=== PATIENT | male | born 1985 | race Caucasian/White ===

== ENCOUNTER 2019-09-09 05:25 | Day surgery (SDC) | payer BC ==
[~2019-09-09] VITALS: Ht 180.3 cm; Wt 79.8 kg
[2019-09-09 06:08] VITALS: Ht 180.3 cm; Wt 79.8 kg
--- NOTE | 2019-09-09 09:44 | OP ---
PATIENT NAME: MARYSOL CAMPOS MEDICAL RECORD: [id number] LOCATION:D.OPS ADMISSION DATE: SURGEON: LINDSAY RAY MD DATE OF OPERATION: 09/09/2019 SURGEON: Lindsay Ray MD ANESTHESIA: TIVA by Ugo Arreola MD DIAGNOSIS: Male sterilization. SPECIMENS: Right vas deferens, left vas deferens. ESTIMATED BLOOD LOSS: None. CLINICAL HISTORY: This is a 34-year-old male who has 5 children in his family. He does not want to have any more children. He comes to have a vasectomy done. He has no allergies to medication. 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 DESCRIPTION OF PROCEDURE: The patient was given IV sedation. He was placed in supine position and prepped and draped. A 0.25% Marcaine with epinephrine was used to infiltrate the skin overlying the vas deferens. A 1 cm long incision was made and the vas deferens was isolated out using the Pito clamp. Hemostats were applied at the proximal and distal ends and the intervening segment was cut out using a #15 blade. The vasal ends were then cauterized. A 4-0 Prolene ties were then used to tie the vasal ends. The 2 vasal ends were then placed back into the right hemiscrotum and the scrotal skin was closed using simple interrupted 4-0 Vicryl. The identical procedure was performed on the left side. At the end of the procedure, fluffs and mesh panties were given. I will see the patient in followup in 2 weeks' time. He is aware that he needs to keep using contraception until we have a post-vasectomy semen analysis, which shows azoospermia in about a month's time. TRANSINT:[id number] Voice Confirmation ID: [id number] DOCUMENT ID: [id number] LINDSAY RAY MD at 0944 CC: [id number] DICTATION DATE: 09/09/19820 SHIPS EQUIPMENT ENGINEER: 09/09/19911 [facility] [address] [id number]
--- NOTE | 2019-09-09 13:38 | NUR ---
0955 IV DC'ED WITH CATH INTACT & 650ML LTC. DRESSING. Francisco SINHA R.N. 1010 DRESSED. AWAKE & ALERT. STATES PAIN LEVEL IS NOW 3/10. GIVEN DISCHARGE INFORMATION INCLUDING RX: TYLENOL #3, MED REC, RTC APPT., D/C INSTRUCTIONS, & POST VASECTOMY D/C INSTRUCTIONS. PT VOICED UNDERSTANDING. TO PRIVATE CAR BY STAFF. HOME WITH GAYE CAMPOS. Francisco SINHA R.N.
== END 2019-09-09 10:10 | disposition home or self-care (01) ==
LOC: D.OPS 05:25
PROVIDERS: ATTEND Urology
DX: Z30.2 Encounter for sterilization (principal)